=== PATIENT | female | born 1955 | race Caucasian/White ===

== ENCOUNTER → 2018-08-01 | Outpatient (CLI) | payer MEDICARE ==
[~2018-08-01] MED LIST: AMIT-108 PO; ASPI-870 PO; CELE-1 PO; CEPH-13 PO; CIPR250S2 PO; CYAN50TA3 PO; CYCL10TA29 PO; DOCU250C70 PO; HYDR4TAB75 PO; LUBI24CA14 PO; MORP-23 PO; MORS15 PO; MULT-1335 PO; ONDA-153 SL; ORP100 PO; OXY10 PO; OXYC-717 PO; OXYC-830 PO; OXYC40TA57 PO; PER PO; PHENA200 PO; PROM-110 PO; SIMV-44 PO; TOP25 PO; VEN75 PO
--- NOTE | 2018-08-01 18:15 | RADIOLOGY IMAGING REPORT ---
FACILITY: [facility] PATIENT NAME: Savita Bach : 1955 MR: [id number] V: [id number] EXAM DATE: ORDERING PHYSICIAN: CHARLI PAGE TECHNOLOGIST: Location: [facility] [place] Patient: Savita Bach : 1955 Visit/Account:[id number] Date of Sevice: 08/01/2018 CERVICAL SPINE MIN 4 VIEW Indication: Chronic neck and shoulder pain, Comparison: None available. Findings: The prevertebral soft tissues are within normal limits. The vertebral body heights are well maintained. There is mild diffuse spondylitic change without evidence of spondylolisthesis. On the left, there i s moderate to severe neural foraminal narrowing at C4-5 and mild neural foraminal narrowing at C3-4 a nd C5-6. On the right, there is moderate neural foraminal narrowing at C3-4 and moderate to severe n eural foraminal narrowing at C5-6.. IMPRESSION: 1. Bilateral neural foraminal narrowing as described. Mild spondylitic changes noted throughout the cervical spine. Report Dictated By: Khoa Tracey at 08/01/2018 6:08 PM Report E-Signed By: Khoa Tracey at 08/01/2018 6:12 PM WSN:[email or web address]
== END ==
LOC: RAD 15:43
PROVIDERS: ATTEND Clinical Nurse Specialist Family Health
DX: M54.2 Cervicalgia (principal)
CPT/HCPCS: 72050

== ENCOUNTER → 2019-01-06 | Outpatient (CLI) | payer MEDICARE ==
--- NOTE | 2019-01-07 16:00 | RADIOLOGY IMAGING REPORT ---
FACILITY: [facility] - [place] PATIENT NAME: OUMAR JOHN : [id number] MR: [id number] V: [id number] EXAM DATE: [id number] ORDERING PHYSICIAN: EDWIGE GREENBERG TECHNOLOGIST: Taty Loredo PROCEDURE: BILATERAL DIGITAL SCREENING MAMMOGRAM WITH CAD ASSISTED INTERPRETATION & 3D TOMOSYNTHESIS REASON FOR STUDY: Screening. FAMILY HISTORY OF BREAST CANCER: BREAST PROCEDURES/TREATMENTS: COMPARISON: None. VIEWS OBTAINED: 2D & 3D full field CC & MLO. BREAST DENSITY: The breast tissue demonstrates scattered fibroglandular tissue elements. MAMMOGRAM FINDINGS: There is a 5mm well circumscribed mass at the8 o'clock position of the Right breast. The Left breast demonstrates no suspicious mass, calcification, or architectural distortion. IMPRESSION: BIRADS 0: Incomplete. Recommend Ultrasound of the Right breast to evaluate a 5mm well circumscribed mass at the 8 o'clock position. DIAGNOSTIC CATEGORY 0--INCOMPLETE: NEED ADDITIONAL IMAGING EVALUATION. RECOMMENDATIONS: ULTRASOUND: RIGHT BREAST. Dictated by: Heriberto Moffett M.D. on 01/07/2019 at 13:37 Transcribed by: JAX on 01/07/2019 at 15:05 Approved by: Heriberto Moffett M.D. on 01/07/2019 at 15:59 [facility]
== END ==
LOC: MAMO 00:19
PROVIDERS: ATTEND Family Medicine
DX: R92.2 Inconclusive mammogram (principal)
CPT/HCPCS: 77063; 77067

== ENCOUNTER → 2019-01-27 | Outpatient (CLI) | payer MEDICARE ==
--- NOTE | 2019-01-28 09:42 | RADIOLOGY IMAGING REPORT ---
[place] [facility] [place] OUMAR JOHN : [id number] MR: [id number] V: [id number] EXAM DATE: [id number] ORDERING PHYSICIAN: EDWIGE GREENBERG TECHNOLOGIST: Sharri Alexandra RT(R)(CT) PROCEDURE:US RIGHT BREAST COMPARISON:Prior mammogram dated 01/06/19 INDICATIONS:Further evaluation AREA SCANNED: 6-9 o'clock position of the Right breast FINDINGS: In the approximate 8 o'clock position of the Right breast 3cm from the nipple there is a 5.2 x 1.4 x 2.6mm cystic area. This may account for the recent mammographic findings. A 6 month follow up Right mammogram is recommended to document stability of the nodule in case the sonographic findings do not account for the mammographic findings. DIAGNOSTIC CATEGORY 3--PROBABLY BENIGN FINDING. RECOMMENDATIONS: SIX MONTH FOLLOW-UP DIAGNOSTIC MAMMOGRAM: RIGHT BREAST. IMPRESSION: BIRADS 3: Probably benign finding. A 6 month follow up Right mammogram recommended. Dictated by: Ita Harp M.D. on 01/27/2019 at 17:16 Transcribed by: BO on 01/28/2019 at 8:17 Approved by: Ita Harp M.D. on 01/28/2019 at 9:41 [facility]
== END ==
LOC: US 07:32
PROVIDERS: ATTEND Family Medicine
DX: R92.2 Inconclusive mammogram (principal)